=== PATIENT | male | born 1950 | race Caucasian/White ===

== ENCOUNTER 2016-06-25 08:32 | Emergency (ER) | payer MEDICARE, OTHER ==
[2016-06-25 08:48] VITALS: BP 149/82
--- NOTE | 2016-06-25 09:25 | EDM.PDOC ---
ED HPI Trauma - General Chief Complaint: Upper Extremity Injury/Pain Stated Complaint: RIGHT ELBOW PAIN Time Seen by Provider: 06/25/16 09:20 Source: Reports: Patient History Limitations: Reports: No limitations - History of Present Illness INITIAL COMMENTS - FREE TEXT/NARRATIVE: pt had a large dog come down on his elebow 2 days ago . He now has pain going down to the hand and pain going up the arm on the rt. The elebow is tender to move. Occurred When: last week Occurred Where: home Method of Injury: direct blow Severity: moderate Pain/Injury Location: Reports: upper extremity, right Consciousness: Reports: no loss of consciousness Associated Symptoms: Reports: denies other symptoms, muscle spasms Allergies/ADRs: Allergies No Known Allergies Allergy (Verified 06/25/16 08:51) Home Medications: Ambulatory Orders *Hydrochlorothiazide 1 tab PO DAILY 06/25/16 *Tizanidine 1 tab PO BID PRN 06/25/16 DULoxetine [Cymbalta] 30 mg PO DAILY 06/25/16 [Confirmed 06/25/16] Diazepam [Valium] 1 tab PO TID 06/25/16 [Confirmed 06/25/16] Naproxen 1 tab PO BID 06/25/16 [Confirmed 06/25/16] buPROPion HCl [Wellbutrin Xl] 1 tab PO DAILY 06/25/16 [Confirmed 06/25/16] Past Medical History HEENT History: Reports: Impaired vision Cardiovascular History: Reports: Hypertension Gastrointestinal History: Reports: Other (see below) Other Gastrointestinal History: chron's Musculoskeletal History: Reports: Arthritis, Back pain, chronic Neurological History: Reports: Concussion Psychiatric History: Reports: Anxiety, Depression - Past Surgical History HEENT Surgical History: Reports: Tonsillectomy GI Surgical History: Reports: Appendectomy, Colon Social & Family History - Tobacco Use Smoking Status *Q: Light Tobacco Smoker Years of Tobacco use: 19 Packs/Tins Daily: 0.5 - Recreational Drug Use Recreational Drug Use: No Review of Systems - Review of Systems Review Of Systems: See Below Constitutional: Reports: no symptoms Eyes: Reports: no symptoms Ears: Reports: no symptoms Nose: Reports: no symptoms Mouth/Throat: Reports: no symptoms Respiratory: Reports: no symptoms Cardiovascular: Reports: no symptoms GI/Abdominal: Reports: No symptoms Musculoskeletal: Reports: other ( rt elebow is painful and he has psin going up the arm and down toward the wrist. ) Skin: Reports: no symptoms Neurological: Reports: no symptoms Trauma Exam - Physical Exam Exam: See Below Text/Narrative:: Pt arrived with pain in the rt elebow after a large dog jumped on the elebow. he has pain which is going up the arm and down toward the wrist. Exam Limited By: No limitations General Appearance: Reports: alert, mild distress Head: Reports: atraumatic Eyes: bilateral eye: EOMI, normal inspection, PERRL Extremities: Reports: other ( rt elebow is tender and he has tenderness in the upper arm and down toward the wrist. ) Neurologic: Reports: alert Course - Vital Signs Last Recorded V/S: Last Vital Signs Temp 35.8 C 06/25/16 08:50 Pulse 89 06/25/16 08:50 Resp 15 06/25/16 08:50 BP 149/82 H 06/25/16 08:50 Pulse Ox 96 06/25/16 08:50 - Orders/Labs/Meds Orders: Active Orders 24 hr Category Date Time Status Elbow Min 3V Rt [CR] Stat Exams 06/25/16 08:51 Taken - Re-Assessments/Exams Free Text/Narrative Re-Assessment/Exam: 06/25/16 09:26 xray was obtained which showed arthritic changes . He had no fracture. Departure - Departure Time of Disposition: 09:27 Disposition: Home, Self-Care 01 Condition: fair Clinical Impression: Contusion of elbow Forms: ED Department Discharge Care Plan Goals: avoid leaning on the elebow, sling-- on and off and be sure to do range of motion, soak in warm water followed by a cool pack . If not better in [address] Lino Cordova, Naprosyn 500mg bid. for 1 week. - My Orders Last 24 Hours: My Active Orders 06/25/16 08:51 Elbow Min 3V Rt [CR] Stat - Assessment/Plan Last 24 Hours: My Active Orders 06/25/16 08:51 Elbow Min 3V Rt [CR] Stat
--- NOTE | 2016-06-25 09:40 | CR ---
Right elbow There is normal alignment. There is no fracture or joint effusion. There is a prominent spur arising from the olecranon. The adjacent soft tissues are unremarkable. Impression: 1. Olecranon spur. 2. No acute findings.
== END 2016-06-25 09:40 | disposition home or self-care (01) ==
LOC: JP.ED 08:32
DX: S50.01XA Contusion of right elbow, initial encounter (principal); H54.7 Unspecified visual loss; I10 Essential (primary) hypertension; F17.210 Nicotine dependence, cigarettes, uncomplicated; Z79.899 Other long term (current) drug therapy; Z90.49 Acquired absence of other specified parts of digestive tract; X58.XXXA Exposure to other specified factors, initial encounter
CPT/HCPCS: 73080-26-RT; 73080-RT; 99283; 99284